=== PATIENT | female | born 1995 | race Caucasian/White ===

== ENCOUNTER 2016-10-30 13:14 | Emergency (ER) | payer OTHER ==
[~2016-10-30] VITALS: Ht 154.9 cm; Wt 59.5 kg
[~2016-10-30 13:14] MED LIST: ALBU1AER9 INH; CLR10 PO; CTP1 PO; FLUT0.0529 NAE; LAMO200T38 PO; PRT/20 PO; ZTHM250 PO
[2016-10-30 13:18] VITALS: Ht 154.9 cm; Wt 59.5 kg
[2016-10-30] MEDS ORDERED: SODIUM CHLORIDE 0.9% 1000ML 1,000 ML IV STA ×2 (14:32→15:44)
[2016-10-30] MEDS ORDERED: ONDANSETRON INJ 2 MG/ML 2 ML VIAL IV STA (14:32)
--- NOTE | 2016-10-30 14:36 | EMERGENCY ROOM VISIT NOTE ---
History First contact with patient: 14:26 Chief Complaint: VOMITING Stated Complaint: VOMITING,SWEATING,DIARRHEA Nursing Triage Summary: Triage Note: Pt reports right abd pain, nausea, vomitting since yesterday. History of Present Illness The patient is a 20 year old female who presents to the Emergency Room with complaints of nausea, vomiting and diarrhea. The patient states that her symptoms started around 10 AM yesterday. She states that she was vomiting and was sent home from work. She has also had diarrhea. She states she has not been able to keep anything down. She reports diffuse crampy abdominal pain and rates her discomfort a 4/10. She denies any fevers. She denies any earache, sore throat, cough, chest pain or trouble breathing. She denies any dysuria, urgency, frequency. She denies any vaginal discharge. She does currently have her period. She denies any known sick contacts. She has not been on antibiotics recently. She denies any recent travel Review of Systems A 10 system review of systems was completed with positives and pertinent negatives listed in the HPI. Past Medical/Surgical History Medical Problems: (1) Asthma (2) Bronchitis (3) Cholecystectomy (4) Tonsillectomy Family History Diabetes mellitus Gallbladder disease Hypertension Kidney disease Kidney stones Social History Smoking Status: Never Smoker Alcohol Use: none Drug Use: none Marital Status: single Housing Status: lives with family, other Occupation Status: student Current/Historical Medications Scheduled Albuterol (Ventolin Hfa), 2 PUFF INH PRN Control Pills ( Control Pills), 1 TAB PO QPM Clonidine Hcl (Catapres), 0.1 MG PO DAILY Ondasetron Odt (Zofran Odt), 4 MG SL Q6H Allergies Coded Allergies: Cephalexin (Unverified Allergy, Unknown, VOMITING, 10/30/16) Physical Exam Vital Signs Date Time Temp Pulse Resp B/P Pulse Ox O2 Delivery O2 Flow Rate FiO2 10/30/16 16:53 36.8 82 18 121/66 98 10/30/16 16:47 82 121/66 98 Room Air 10/30/16 15:10 98 129/74 98 Room Air 10/30/16 15:10 87 18 129/74 98 Room Air 10/30/16 13:18 36.8 133 18 137/81 99 Room Air Physical Exam VITALS: Vitals are noted on the nurse's note and reviewed by myself. Vital signs stable. The patient is afebrile. GENERAL: This is a 20-year-old female, in no acute distress, nondiaphoretic, well-developed well-nourished. SKIN: The skin was without rashes, erythema, edema, or bruising. There is no tenting of the skin. Capillary reflex less than 2 seconds. HEAD: Normocephalic atraumatic. EARS: The external ears are normal in appearance. EYES: Pupils equal round and reactive to light and accommodation. Conjunctivae without injection, sclerae without icterus. Extraocular movements intact. NOSE: Patent, turbinates without inflammation or discharge. MOUTH: Mucous membranes moist. Tonsils are not enlarged. Pharynx without erythema or exudate. Uvula midline. Airway patent. Tongue does not deviate. NECK: Supple without nuchal rigidity. No JVD. HEART: Regular rate and rhythm without murmurs gallops or rubs. LUNGS: Clear to auscultation bilaterally without wheezes, rales or rhonchi. No retractions or accessory muscle use. ABDOMEN: Positive bowel sounds x 4. Soft, mild diffuse tenderness, without masses or organomegaly. MUSCULOSKELETAL: No muscle atrophy, erythema, or edema noted. Full range of motion in all extremities. Normal gait. Strength 5/5 throughout. NEURO: Patient was alert and oriented to person place and time. N No focal neurological deficits. Medical Decision & Procedures Laboratory Results 10/30/16 15:00 Red Blood Count 5.57, Mean Corpuscular Volume 80.6, Mean Corpuscular Hemoglobin 27.6, Mean Corpuscular Hemoglobin Concent 34.3, Mean Platelet Volume 9.8, Neutrophils (%) (Auto) 66.9, Lymphocytes (%) (Auto) 20.4, Monocytes (%) (Auto) 11.6, Eosinophils (%) (Auto) 0.4, Basophils (%) (Auto) 0.3, Neutrophils # (Auto ) 4.85, Lymphocytes # (Auto) 1.48, Monocytes # (Auto) 0.84, Eosinophils # (Auto ) 0.03, Basophils # (Auto) 0.02 10/30/16 15:00 Test 10/30/16 14:32 10/30/16 14:40 10/30/16 15:00 Urine Test NEG (NEG) Urine Color DK YELLOW Urine Appearance CLEAR (CLEAR) Urine pH 6.0 (4.5-7.5) Urine Specific [place] 1.039 (1.000-1.030) Urine Protein 2+ (NEG) Urine Glucose (UA) NEG (NEG) Urine Ketones 2+ (NEG) Urine Occult Blood TRACE (NEG) Urine Nitrite NEG (NEG) Urine Bilirubin NEG (NEG) Urine Urobilinogen NEG (NEG) Urine Leukocyte Esterase NEG (NEG) Urine WBC (Auto) 1-5 /hpf (0-5) Urine RBC (Auto) 5-10 /hpf (0-4) Urine Hyaline Casts (Auto) 10-30 /lpf (0-5) Urine Epithelial Cells (Auto) >30 /lpf (0-5) Urine Bacteria (Auto) NEG (NEG) Urine Renal Epithelial Cells 0-5 /lpf (0-5) White Blood Count 7.25 K/uL (4.8-10.8) Red Blood Count 5.57 M/uL (4.2-5.4) Hemoglobin 15.4 g/dL (12.0-16.0) Hematocrit 44.9 % (37-47) Mean Corpuscular Volume 80.6 fL (80-100) Mean Corpuscular Hemoglobin 27.6 pg (25-34) Mean Corpuscular Hemoglobin Concent 34.3 g/dl (32-36) Platelet Count 266 K/uL (130-400) Mean Platelet Volume 9.8 fL (7.4-10.4) Neutrophils (%) (Auto) 66.9 % Lymphocytes (%) (Auto) 20.4 % Monocytes (%) (Auto) 11.6 % Eosinophils (%) (Auto) 0.4 % Basophils (%) (Auto) 0.3 % Neutrophils # (Auto) 4.85 K/uL (1.4-6.5) Lymphocytes # (Auto) 1.48 K/uL (1.2-3.4) Monocytes # (Auto) 0.84 K/uL (0.11-0.59) Eosinophils # (Auto) 0.03 K/uL (0-0.5) Basophils # (Auto) 0.02 K/uL (0-0.2) RDW Standard Deviation 39.0 fL (36.4-46.3) RDW Coefficient of Variation 13.3 % (11.5-14.5) Immature Granulocyte % (Auto) 0.4 % Immature Granulocyte # (Auto) 0.03 K/uL (0.00-0.02) Anion Gap 11.0 mmol/L (3-11) Est Creatinine Clear Calc Drug Dose 101.3 ml/min Estimated GFR () 136.1 Estimated GFR (Non- 117.4 BUN/Creatinine Ratio 19.1 (10-20) Calcium Level 9.5 mg/dl (8.5-10.1) Total Bilirubin 0.8 mg/dl (0.2-1) Aspartate Amino Transf (AST/SGOT) 21 U/L (15-37) Alanine Aminotransferase (ALT/SGPT) 24 U/L (12-78) Alkaline Phosphatase 64 U/L (45-117) Total Protein 8.4 gm/dl (6.4-8.2) Albumin 4.2 gm/dl (3.4-5.0) Globulin 4.2 gm/dl (2.5-4.0) Albumin/Globulin Ratio 1.0 (0.9-2) Chemistry Specimen Hemolysis Medications Administered Medications (Trade) Dose Ordered Sig/Refugio Route Start Time Stop Time Status Last Admin Dose Admin Sodium Chloride (Nss 1000ml) 1,000 ml @ 999 mls/hr Q1H1M STAT IV 10/30/16 14:32 10/30/16 15:32 DC 10/30/16 15:30 999 MLS/HR Ondansetron HCl (Zofran Inj) 4 mg NOW STAT IV 10/30/16 14:32 10/30/16 14:33 DC 10/30/16 15:10 4 MG ED Course The patient was seen and examined. Previous visits were reviewed. The patient does not have a fever or leukocytosis. She does not have any significant electrolyte abnormalities. Urinalysis suggests contamination. The patient has hematuria likely secondary to her period. Urine test was negative. The patient was hydrated with normal saline and was given 4 mg IV Zofran. Her nausea resolved. She stated she still felt like her stomach was upset and I did order Phenergan. When I reevaluated her she has not yet received the Phenergan but stated she was feeling better like to be discharged. I did reexamine her abdomen. She continued to have diffuse discomfort and tenderness. She had some right lower quadrant tenderness as well. Given the fact that she has had nausea, vomiting, diarrhea, no fever, no leukocytosis and somewhat diffuse abdominal discomfort, appendicitis is considered less likely. I discussed possibly obtaining a CT scan of the abdomen and pelvis or monitoring closely of following up with her family doctor in the next 24 hours. She elects to follow-up with her family doctor. She was given a prescription for Zofran. She should return to the ER if any worsening symptoms. The case was discussed with Dr. oBone who agrees with the assessment and treatment plan Medical Decision DIFFERENTIAL DIAGNOSIS: Hepatitis, cholecystitis, cholangitis, biliary colic, pancreatitis, pneumonia, subdiaphragmatic abscess, appendicitis, inguinal hernia , nephrolithiasis, inflammatory bowel disease, mesenteric adenitis, peptic ulcer disease, GERD, gastritis, pancreatitis, myocardial infarction, pericarditis, ruptured aortic aneurysm, appendicitis, gastroenteritis, bowel obstruction, splenic infarct, diverticulitis, mesenteric ischemia, metabolic, peritonitis, among others. Impression Primary Impression: Nausea, vomiting, and diarrhea Departure Information Dispostion Home / Self-Care Condition GOOD Prescriptions Ondasetron Odt (ZOFRAN ODT) 4 Mg Tab 4 MG SL Q6H for Nausea, #15 TAB Prov: Nina Valenzuela PA-C 10/30/16 Referrals Abe Clarke M.D. (PCP) Forms HOME CARE DOCUMENTATION FORM, IMPORTANT VISIT INFORMATION, Work Instructions Return To Work: 2 days Patient Instructions ED Nausea Vomiting, My [facility] Additional Instructions Zofran as prescribed, as needed for nausea and vomiting Recheck with emergency department or your family doctor in 24 hours for repeat abdominal examination Return sooner with any localized pain to the right side of the abdomen, fevers or worsening symptoms Otherwise, recheck with your family doctor at the end of this week or early next week Work Instructions Return To Work: 2 days
[2016-10-30] MEDS ORDERED: PRVHFAIN INH (14:38)
[2016-10-30] MEDS ORDERED: CTP/1 PO (14:38)
[2016-10-30 15:04] LABS: URINE APPEARANCE CLEAR (CLEAR); URINE COLOR DK YELLOW; URINE EPITHELIAL CELL AUTO >30 /lpf (0-5); URINE NITRITE NEG (NEG); URINE SPECIFIC GRAVITY 1.039 (1.000-1.030); UROBILINOGEN NEG (NEG); ZZUR CULT IF INDIC CLEAN CATCH NO
[2016-10-30 15:05] LABS: MANUAL MICROSCOPIC REQUIRED? NO; REVIEW REQ? YES
[2016-10-30 15:06] LABS: URINE BILIRUBIN NEG (NEG)
[2016-10-30 15:23] LABS: BASO % 0.3 %; BASO ABS # 0.02 K/uL (0-0.2); COMPLETE YES; EOS % 0.4 %; HEMATOCRIT 44.9 % (37-47); IG% 0.4 %; LYMPH % 20.4 %; LYMPH ABS # 1.48 K/uL (1.2-3.4); MEAN CELL VOLUME 80.6 fL (80-100); MEAN CORPUSCULAR HEMOGLOBIN 27.6 pg (25-34); MEAN CORPUSCULAR HGB CONC 34.3 g/dl (32-36); MEAN PLATELET VOLUME 9.8 fL (7.4-10.4); MONO % 11.6 %; NEUT % 66.9 %; PLATELET COUNT 266 K/uL (130-400); RED BLOOD COUNT 5.57 M/uL (4.2-5.4); WHITE BLOOD COUNT 7.25 K/uL (4.8-10.8)
[2016-10-30 15:49] LABS: BUN/CREATININE RATIO 19.1 (10-20); CALCIUM 9.5 mg/dl (8.5-10.1); CREATININE 0.74 mg/dl (0.60-1.20); POTASSIUM 3.4 mmol/L (3.5-5.1)
[2016-10-30] MEDS ORDERED: PROMETHAZINE HCL INJ 25 MG in SODIUM CHLORIDE 0.9% 50ML 50 ML IV STA (15:58)
[2016-10-30] MEDS ORDERED: ONDA4TAB10 SL (16:45)
[2016-10-30 16:53] VITALS: BP 121/66; PULSE 82; TEMP 36.8; O2SAT 98
[2016-10-30] MEDS ORDERED: BCPILLS PO (20:31)
== END 2016-10-30 16:54 | disposition home or self-care (01) ==
LOC: C.EDB 13:16 → C.EDA 16:54
DX: R11.2 Nausea with vomiting, unspecified (principal); R19.7 Diarrhea, unspecified; R10.9 Unspecified abdominal pain

== ENCOUNTER 2023-11-19 17:56 | Inpatient (IN) ==
[2023-11-19] MEDS: LACTATED RINGER'S 1,000 ML IV PRN (20:40)
[2023-11-19] MEDS: BUTORPHANOL TARTRATE 2 MG/ML VIAL IV ONE (20:46)
[2023-11-19 21:16] LABS: Hematocrit (blood only) 33.5 % (37.0-47.0); Hemoglobin 11.7 g/dl (12.0-16.0); Mean Corpuscular Hemoglobin 28.5 pg (25.0-34.0); Mean Corpuscular Hgb Conc 34.9 g/dL (32.0-36.0); Mean Corpuscular Volume 81.7 fL (80.0-100.0); Mean Platelet Volume 10.7 fL (9.4-12.4); Platelet Count 318 K/uL (130-400); RDW Coefficient of Variation 13.9 % (11.5-14.5); RDW Standard Deviation 41.2 fL (36.4-46.3); White Blood Count 14.85 K/ul (4.8-10.8)
[2023-11-19] MEDS ORDERED: NALOXONE HCL 0.4 MG/1 ML VIAL/CARP IV PRN (21:18)
[2023-11-19] MEDS ORDERED: ROPIVACAINE 0.5% PF 5 MG/ML 20 ML VIAL EPI PRN (21:18)
[2023-11-19] MEDS ORDERED: fentANYL 2 MCG/ML BUPIVacaine 0.125%-NSS 100ML BAG EPI PRN (21:18)
[2023-11-19] MEDS ORDERED: LIDOCAINE 2% MPF LOCAL 5 ML VIAL EPI PRN (21:18)
[2023-11-19] MEDS ORDERED: NALBUPHINE HCL 5 MG in SYRINGE 0 ML IV PRN (21:18)
[2023-11-19] MEDS ORDERED: NALOXONE HCL 1 MG in SODIUM CHLORIDE 0.9% 1,000 ML IV PRN (21:18)
[2023-11-19] MEDS ORDERED: BUPIVACAINE 0.25% PF 30 ML VIAL EPI PRN (21:18)
[2023-11-19] MEDS ORDERED: ePHEDrine sulfate 50 MG/ML AMP IV PRN (21:18)
[2023-11-19] MEDS ORDERED: SODIUM CHLORIDE 0.9% PF INJ 10 ML VIAL EPI PRN (21:18)
[2023-11-19] MEDS ORDERED: diphenhydrAMINE 50 MG/ML VIAL IV PRN (21:18)
[2023-11-19] MEDS ORDERED: fentaNYL citrate PF 100 MCG/2 ML VIAL EPI PRN (21:18)
--- NOTE | 2023-11-19 21:18 | Anesthesiology Consultation ---
Date of Service November 19, 2023 Assessment & Plan Chart Review Chart Review: Acceptable Risk for Labor Epidural Consults Requested none History Height/Weight Height: 5 ft 1 in Weight: 68.946 kg Allergies Allergy/AdvReac Type Severity Reaction Status Date / Time cephalexin AdvReac Intermediate Vomiting Verified 09/21/23 13:05 Medications Home Medications Medication Instructions Recorded Confirmed Last Taken [id number] 1 mg 1 tab PO DAILY 11/19/23 11/19/23 Unknown tablet Active Medications Generic Name Dose Route Start Last Admin Trade Name Freq PRN Reason Stop Dose Admin Lactated Ringer's 1,000 mls @ 125 mls/hr 11/19/23 20:26 11/19/23 20:40 Lr IV 11/21/23 20:25 999 mls/hr .Q8H PRN Administration L&D Protocol Protocol Past Medical History Medical History Migraine Asthma Hemorrhoids Bronchitis Past Family History Family History Other Diabetes Kidney stones Past Surgical History Surgical History H/O wisdom tooth extraction Hx of cholecystectomy History of tonsillectomy Social History Smoking Status: Current every day smoker Smoking cigarettes per day: 8 Hx Alcohol Use: No Hx Substance Use: No substance use type: other Substance Use Type Other:: Smokes Delta 8 from convenience stores, CBD with traces of THC per pt. Last Used Substance Other:: 09/06/23 Physical Exam Vital Signs Last Vital Signs Temp 36.8 C 11/19/23 19:05 Pulse 85 11/19/23 21:12 Resp 18 11/19/23 20:48 BP 117/66 11/19/23 20:48 Pulse Ox 100 11/19/23 21:12 O2 Del Method Room Air 11/19/23 19:00 Testing Laboratory Results 11/19/23 20:45
[2023-11-19] MEDS: fentANYL 2 MCG/ML BUPIVacaine 0.125%-NSS 100ML BAG ONE (21:40)
[2023-11-19] MEDS: LIDOCAINE 2%/EPINEPHRINE 1:200,000 20 ML PF ONE (21:42)
[2023-11-19] MEDS: SODIUM CHLORIDE 0.9% PF INJ 10 ML VIAL ONE (21:59)
[2023-11-19] MEDS: fentaNYL citrate PF 100 MCG/2 ML VIAL ONE (21:59)
[2023-11-19] MEDS: ePHEDrine sulfate 50 MG/ML AMP ONE (21:59)
[2023-11-19] MEDS: BUPIVACAINE 0.25% PF 30 ML VIAL ONE (21:59)
[2023-11-19] MEDS: LIDOCAINE 2%/EPINEPHRINE 1:200,000 20 ML PF EPI STA (22:00)
[2023-11-19] MEDS: BUPIVACAINE 0.25% PF 30 ML VIAL EPI STA (22:00)
[2023-11-19] MEDS: SODIUM CHLORIDE 0.9% PF INJ 10 ML VIAL EPI STA (22:00)
[2023-11-19] MEDS: fentaNYL citrate PF 100 MCG/2 ML VIAL EPI STA (22:00)
[2023-11-19] MEDS: OXYTOCIN 30 UNITS/NSS 30 UNITS/500 ML BAG IV PRN (23:59)
[2023-11-20] MEDS: METHYLERGONOVINE MALEATE 0.2 MG/ML AMP IM ONE (00:04)
[2023-11-20] MEDS ORDERED: DIPHTHER/TETAN/PERTUS Vaccine (Tdap, Adol/Adult) 0.5mL IM ONE (00:18)
[2023-11-20] MEDS ORDERED: oxyCODONE/ACETAMINOPHEN 5mg/325mg TAB PO PRN (00:18)
[2023-11-20] MEDS ORDERED: ACETAMINOPHEN W/CODEINE #3 1 TAB PO PRN (00:18)
[2023-11-20] MEDS ORDERED: HYDROCORTISONE ACETATE 25 MG SUPP PR PRN (00:18)
[2023-11-20] MEDS ORDERED: OXYTOCIN 30 UNITS/NSS 30 UNITS/500 ML BAG IV PRN (00:18)
[2023-11-20] MEDS ORDERED: bisacodyL 10 MG SUPP PR PRN (00:18)
[2023-11-20] MEDS: LIDOCAINE 1% LOCAL 20 ML VIAL INFIL PRN (00:21)
--- NOTE | 2023-11-20 00:34 | Delivery Summary ---
Vaginal Delivery Summary Date of Service November 20, 2023 Vaginal Delivery Summary Patient's been followed in our office for care and delivery. was dated with a first trimester ultrasound. Patient was admitted in spontaneous labor at 39 weeks gestation. Patient made cervical change from 3 to 5 cm. Patient was diagnosed as being in active labor. Patient was given 1 dose of IV Stadol for pain control followed by epidural. Patient got good pain relief from the epidural. Membranes were ruptured surgically at 8 cm. Fluid was clear patient went to full dilatation and then about 10 minutes pushed out a live infant via direct occiput anterior position over an intact perineum. Tight nuchal cord which was clamped and cut prior to delivery. Infant was suctioned through the mouth and the nose. Cord blood was stripped into the . Cord was clamped and cut by the father. Cord blood was taken. With IV Pitocin running the placenta was removed intact. 2 superficial lacerations of the labia minora were sutured with running 3-0 chromic. And local anesthesia was injected into the area prior to the suturing. Following this uterus contracted nicely. Perineum was intact. Bleeding was estimated at 108 mL.
[2023-11-20] MEDS: ONDANSETRON INJ 2 MG/ML 2 ML VIAL ONE (00:45)
[2023-11-20] MEDS: ONDANSETRON INJ 2 MG/ML 2 ML VIAL IV STA (01:34)
[2023-11-20] MEDS: BENZOCAINE 20% SPRY 85 APPLN/85 GM CAN EXT PRN (02:44)
[2023-11-20] MEDS: IBUPROFEN 600 MG TAB PO PRN (04:37)
[2023-11-20] MEDS: DOCUSATE SODIUM 100 MG CAP PO SCH (08:01)
[2023-11-20] MEDS: PRENATAL VITAMIN 1 TAB PO SCH (08:01)
--- NOTE | 2023-11-20 08:15 | Anesthesia Procedure Note ---
Date of Service November 20, 2023 Anesthesia Post Epidural Note Vital Signs Vital Signs: Temp Pulse Resp BP Pulse Ox O2 Del Method 98.1 F 60 18 106/58 L 97 Room Air 11/20/23 03:00 11/20/23 03:00 11/20/23 03:00 11/20/23 03:00 11/20/23 03:00 11/20/23 03:00 Pain Intensity Bilateral Abdomen: Pain Intensity: 3 Notes Mental Status: alert / awake / arousable and participated in evaluation Nausea / Vomiting: adequately controlled Pain: adequately controlled Airway Patency, RR, SpO2: stable & adequate BP & HR: stable & adequate Hydration State: stable & adequate Neuraxial Anesthesia: was administered and sensory block is resolving Anesthetic Complications: no major complications apparent and Pt Satisfied with anesthetic care Epidural: Removed without complications and With tip intact
[2023-11-20] MEDS: ACETAMINOPHEN 325 MG TAB PO PRN (15:50)
[2023-11-21 07:03] LABS: Hematocrit (blood only) 34.8 % (37.0-47.0); Hemoglobin 11.5 g/dl (12.0-16.0); Mean Corpuscular Volume 84.7 fL (80.0-100.0); Mean Platelet Volume 10.5 fL (9.4-12.4); Platelet Count 303 K/uL (130-400); RDW Coefficient of Variation 14.3 % (11.5-14.5); RDW Standard Deviation 44.3 fL (36.4-46.3); Red Blood Count 4.11 M/uL (4.20-5.40); White Blood Count 10.76 K/ul (4.8-10.8)
--- NOTE | 2023-11-21 09:53 | Obstetrical Progress Note ---
Date of Service November 21, 2023 Assessment & Plan Admission and Anticipated Discharge Date Admission Date: November 19, 2023 Subjective abdomen soft and non tender no calf tenderness ambulating well vaginal bleeding scant hgb 11.5 Results & Data Vital Signs (Past 12 Hours) Vital Signs Temp Pulse Resp BP Pulse Ox O2 Del Method 11/20/23 23:50 36.6 C 67 20 103/52 L 98 Room Air
[2023-11-21] MEDS ORDERED: bisacodyL 5 MG TABEC PO SCH (20:00)
== END 2023-11-21 14:17 | disposition home or self-care (01) | DRG 806 ==
LOC: OPB 17:56 → 4S1 17:57 → 4E1 11-20 02:35